=== PATIENT | male | born 1990 | race Caucasian/White ===

== ENCOUNTER 2022-05-07 20:26 | Emergency (ER) | payer MEDICAID ==
[~2022-05-07] VITALS: Ht 200.7 cm; Wt 109.1 kg
[2022-05-07 20:56] VITALS: BP 129/82
[2022-05-07] MEDS ORDERED: LIDOcaine 1% 30ml preserv. free vial IJ STA (21:28)
[2022-05-07] MEDS ORDERED: chlorhexidine gluconate 15ml Cup****oral rinse MM ONE (21:30)
[2022-05-07] MEDS ORDERED: HYDR-3965 PO (22:42)
[2022-05-08] MEDS ORDERED: chlorhexidine gluconate 15ml Cup****oral rinse MM SCH (08:00)
== END 2022-05-07 22:52 | disposition home or self-care (01) ==
LOC: ER 20:28
DX: K08.89 Other specified disorders of teeth and supporting structures (principal)
CPT/HCPCS: 64400; 99284